=== PATIENT | male | born 1950 | race Caucasian/White ===

== ENCOUNTER 2023-11-02 16:23 | Inpatient (IN) | payer OTHER ==
--- NOTE | 2023-11-02 18:12 | XRAY Report ---
PROCEDURE: Femur 2+V RT INDICATIONS: Trauma TECHNIQUE: 4 views of the femur were acquired. COMPARISON: None. FINDINGS: Exam is degraded by nonstandard patient positioning Bones: Questionable fracture through the greater trochanter poorly visualized. Soft tissues: No suspicious soft tissue calcifications or masses. IMPRESSION: Probable intertrochanteric fracture. Recommend CT Reviewed by: Isra Sahu MD on 11/02/2023 5:11 PM [facility] Approved by: Isra Sahu MD on 11/02/2023 5:11 PM [facility] Station ID: [id number]
[2023-11-02] MEDS ORDERED: oxyCODONE 5 MG TABLET PO STA ×2 (18:28→19:34)
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
[2023-11-02] MEDS ORDERED: SODIUM CHLORIDE 0.9% 1,000 ML IV STA (20:21)
--- NOTE | 2023-11-02 20:28 | CT Report ---
PROCEDURE: Lower Extremity RT WO INDICATIONS: fall, R hip/groin pain, poss fx on xray TECHNIQUE: Noncontrast 3-mm axial sections acquired from the distal tibial shaft to the talar dome, with coronal and sagittal reformats. For radiation dose reduction, the following was used: automated exposure c ontrol, adjustment of mA and/or kV according to patient size. COMPARISON: Right hip and femur radiographs earlier today. FINDINGS: Image quality: Excellent. Bones: Right hip intertrochanteric fracture. No dislocation of the hip joint. No additional fracture . No suspicious osseous lesion. Soft tissues: No large hematoma. Small contusion at in the subcutaneous soft tissues near the fractu re site. No suspicious calcifications. No free fluid in the pelvis. Prostatomegaly. Impression: Right hip intertrochanteric fracture. Reviewed by: Burke Bowie MD on 11/02/2023 8:27 PM PST Approved by: Burke Bowie MD on 11/02/2023 8:27 PM PST Station ID: [id number]
[2023-11-02 20:32] LABS: BASOPHILS # (AUTO) 0.1 10^3/uL (0.0-0.1); BASOPHILS % (AUTO) 0.4 %; EOSINOPHILS % (AUTO) 0.1 %; HCT - HEMATOCRIT 42.5 % (42.0-52.0); HGB - HEMOGLOBIN 13.7 g/dL (14.0-18.0); LYMPHOCYTES # (AUTO) 0.9 10^3/uL (1.5-3.5); LYMPHOCYTES % (AUTO) 5.1 %; MEAN CORPUSCULAR HEMOGLOBIN 28.5 pg (27.0-31.0); MEAN CORPUSCULAR HGB CONC 32.2 g/dL (32.0-36.0); MEAN CORPUSCULAR VOLUME 88.4 fL (80.0-94.0); MEAN PLATELET VOLUME 10.3 fL (7.4-11.4); MONOCYTES # (AUTO) 0.9 10^3/uL (0.0-1.0); NEUTROPHILS # (AUTO) 15.2 10^3/uL (1.5-6.6); PLT - PLATELET COUNT 294 10^3/uL (130-450); RED BLOOD COUNT 4.81 10^6/uL (4.70-6.10); RED CELL DISTRIBUTION WIDTH 12.7 % (12.0-15.0)
[2023-11-02 20:49] LABS: ALBUMIN 3.7 g/dL (3.2-5.5); ALBUMIN/GLOBULIN RATIO 1.2 (1.0-2.2); BILIRUBIN,TOTAL 0.4 mg/dL (0.2-1.0); CALCIUM 9.3 mg/dL (8.5-10.3); CREATININE 0.7 mg/dL (0.6-1.3); POTASSIUM 4.1 mmol/L (3.5-4.5); TOTAL PROTEIN 6.8 g/dL (6.4-8.9)
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
[2023-11-02] MEDS ORDERED: oxyCODONE 5 MG TABLET PO PRN (21:46)
[2023-11-02] MEDS ORDERED: ONDANSETRON ODT 4 MG TABLET TL PRN (21:46)
[2023-11-02] MEDS ORDERED: ONDANSETRON 4 MG/2 ML VIAL IVP PRN (21:46)
[2023-11-02] MEDS ORDERED: SODIUM CHLORIDE FLUSH 0.9% 10 ML SYRINGE IVP PRN (21:46)
[2023-11-02] MEDS ORDERED: IPRATROPIUM/ALBUTEROL 3 ML NEB INH PRN (21:49)
[2023-11-02] MEDS ORDERED: LACTATED RINGERS 1,000 ML IV SCH (22:00)
--- NOTE | 2023-11-03 00:02 | XRAY Report ---
PROCEDURE: Chest 1V INDICATIONS: Preop TECHNIQUE: One view of the chest was acquired. COMPARISON: CT right lower extremity also performed today. FINDINGS: Surgical changes and devices: None. Lungs and pleura: No pleural effusions or pneumothorax. Lungs are clear. Mediastinum: Mediastinal contours appear normal. Heart size is normal. Bones and chest wall: No suspicious bony lesions. Overlying soft tissues appear unremarkable. IMPRESSION: No acute cardiopulmonary process. Reviewed by: Burke Bowie MD on 11/03/2023 12:01 AM [facility] Approved by: Burke Bowie MD on 11/03/2023 12:01 AM [facility] Station ID: [id number]
[2023-11-03] MEDS: MORPHINE 2 MG/ML CARPUJECT IVP PRN ×3 (00:28→08:23)
[2023-11-03] MEDS: SODIUM CHLORIDE FLUSH 0.9% 10 ML SYRINGE IVP SCH ×3 (00:36→17:40)
[2023-11-03] MEDS: ACETAMINOPHEN 325 MG TABLET PO PRN ×3 (00:50→08:22)
[2023-11-03 06:14] LABS: BASOPHILS % (AUTO) 0.3 %; EOSINOPHILS % (AUTO) 0.1 %; HCT - HEMATOCRIT 36.7 % (42.0-52.0); HGB - HEMOGLOBIN 11.9 g/dL (14.0-18.0); LYMPHOCYTES # (AUTO) 1.5 10^3/uL (1.5-3.5); LYMPHOCYTES % (AUTO) 10.9 %; MEAN CORPUSCULAR HEMOGLOBIN 28.5 pg (27.0-31.0); MEAN CORPUSCULAR HGB CONC 32.4 g/dL (32.0-36.0); MEAN PLATELET VOLUME 10.8 fL (7.4-11.4); MONOCYTES # (AUTO) 1.1 10^3/uL (0.0-1.0); MONOCYTES % (AUTO) 7.8 %; NEUTROPHILS # (AUTO) 11.5 10^3/uL (1.5-6.6); NEUTROPHILS % (AUTO) 80.6 %; PLT - PLATELET COUNT 254 10^3/uL (130-450); RED BLOOD COUNT 4.17 10^6/uL (4.70-6.10); RED CELL DISTRIBUTION WIDTH 12.8 % (12.0-15.0); WHITE BLOOD COUNT 14.2 x10^3/uL (4.8-10.8)
[2023-11-03 06:29] LABS: CALCIUM 8.3 mg/dL (8.5-10.3); CREATININE 0.6 mg/dL (0.6-1.3); POTASSIUM 4.2 mmol/L (3.5-4.5)
--- NOTE | 2023-11-03 10:38 | PROVIDER PROGRESS NOTE ---
Assessment/Plan - Problem List (1) Intertrochanteric fracture of right hip Qualifiers: Fracture type: closed Fracture alignment: nondisplaced Qualified Code(s): S72.144A - Nondisplaced intertrochanteric fracture of right femur, initial encounter for closed fracture Assessment/Plan: Plan: Treat with pain meds To OR with Ortho today Post-op he will need PT and OT (2) Leukocytosis WBC 17 in ER and is 14.2 today without starting any antibx. His CXR was WNL. His U/A is also normal. This is most likely reactive s/p trauma; no current s/s infection Plan: Will monitor CBC (3) Asthma RT learned from the pt that he does not respond well to Albuterol and Xopenex and is on Alvesco MDI at home Plan: Will cancel Duonebs ordered by Telemedicine Will order Alvesco, as pt's own med on his reconciled med list (4) Abnormal EKG His pre-op EKG was ordered by Telemedicine but not interpreted lkast night. I interpreted the EKG, it shows: NSR, incomplete RBBB, RA enlgm, LAFB. These changes suggest Cor Pulmonale. No prior EKG available for comparison. I discussed these EKG findings with anesthesia provider who will be taking hi to OR, Yeimy Padilla (5) Hyperglycemia Glc 139, was a non-fasting result, then was 115 fasting this a.m. Plan: Checking Hgba1c - Current Meds Current Meds: Current Medications Generic Name Dose Route Start Last Admin Trade Name Freq PRN Reason Stop Dose Admin Acetaminophen 650 mg 11/02/23 21:46 11/03/23 08:22 Acetaminophen 325 Mg Tablet PO 650 mg Q4HR PRN Administration Pain 1 to 4, or Fever Lactated Ringer's 1,000 mls @ 75 mls/hr 11/02/23 22:00 11/03/23 01:45 Lr IV 75 mls/hr .[id number] SERGE Administration Morphine Sulfate 2 mg 11/02/23 21:46 11/03/23 08:23 Morphine 2 Mg/Ml Carpuject IVP 2 mg Q4HR PRN Administration Pain 8 to 10 Sodium Chloride 10 ml 11/03/23 01:00 11/03/23 08:27 Sodium Chloride Flush 0.9% 10 Ml Syringe IVP 10 ml [id number],[id number],1700 [facility] Administration - Lab Result Fish Bone Diagrams: 11/03/23 05:33 11/03/23 05:33 - EKG Results EKG Interpreted Independently: Yes EKG Comparison: Old EKG unavailable EKG Findings: NSR, incomplete RBBB, RA enlgm, LAFB. These changes suggest Cor Pulmonale. No prior EKG available for comparison. - Diagnostic Imaging Results Diagnostic Imaging Results: Final report reviewed Subjective - Subjective Patient Reports: Resting Comfortably Objective Vital Signs: Vital Signs - 24 hr 11/02/23 11/02/23 11/02/23 16:27 18:34 20:00 Temperature 36.8 C 36.2 C L 36.5 C Heart Rate 88 94 96 Heart Rate [ Brachial] Respiratory 20 16 16 Rate Blood Pressure 121/79 125/70 122/70 Blood Pressure [Right Brachial artery] O2 Saturation 98 96 98 11/02/23 11/03/23 22:45 08:01 Temperature 37.3 C 36.4 C L Heart Rate Heart Rate [ 94 57 L Brachial] Respiratory 20 18 Rate Blood Pressure Blood Pressure 118/76 99/56 L [Right Brachial artery] O2 Saturation 95 91 L Oxygen O2 Source Room air I&O (Last 24 Hrs): Intake and Output Totals x24h 11/01/23 11/02/23 11/03/23 23:59 23:59 23:59 Intake Total 0 1000 Output Total 600 Balance 0 400 General: Alert, Other (Thin frail male (BMI 17)) HEENT: Mucous membr. moist/pink Neck: Supple Neuro: Alert, Non Focal Cardiovascular: Regular rate Respiratory: No respiratory distress Abdomen: Soft Extremities: No edema - Results Results: Laboratory Results WBC 14.2 x10^3/uL (4.8-10.8) H 11/03/23 05:33 RBC 4.17 10^6/uL (4.70-6.10) L 11/03/23 05:33 Hgb 11.9 g/dL (14.0-18.0) L 11/03/23 05:33 Hct 36.7 % (42.0-52.0) L 11/03/23 05:33 MCV 88.0 fL (80.0-94.0) 11/03/23 05:33 MCH 28.5 pg (27.0-31.0) 11/03/23 05:33 MCHC 32.4 g/dL (32.0-36.0) 11/03/23 05:33 RDW 12.8 % (12.0-15.0) 11/03/23 05:33 Plt Count 254 10^3/uL (130-450) 11/03/23 05:33 MPV 10.8 fL (7.4-11.4) 11/03/23 05:33 Neut # (Auto) 11.5 10^3/uL (1.5-6.6) H 11/03/23 05:33 Lymph # (Auto) 1.5 10^3/uL (1.5-3.5) 11/03/23 05:33 [place] # (Auto) 1.1 10^3/uL (0.0-1.0) H 11/03/23 05:33 Eos # (Auto) 0.0 10^3/uL (0.0-0.7) 11/03/23 05:33 Baso # (Auto) 0.0 10^3/uL (0.0-0.1) 11/03/23 05:33 Absolute Nucleated RBC 0.00 x10^3/uL 11/03/23 05:33 Nucleated RBC % 0.0 /100WBC 11/03/23 05:33 Sodium 137 mmol/L (135-145) 11/03/23 05:33 Potassium 4.2 mmol/L (3.5-4.5) 11/03/23 05:33 Chloride 106 mmol/L (101-111) 11/03/23 05:33 Carbon Dioxide 27 mmol/L (21-32) 11/03/23 05:33 Anion Gap 4.0 (6-13) L 11/03/23 05:33 BUN 18 mg/dL (6-20) 11/03/23 05:33 Creatinine 0.6 mg/dL (0.6-1.3) 11/03/23 05:33 Estimated GFR (MDRD) 132 (>89) 11/03/23 05:33 Glucose 115 mg/dL (74-104) H 11/03/23 05:33 Calcium 8.3 mg/dL (8.5-10.3) L 11/03/23 05:33 Total Bilirubin 0.4 mg/dL (0.2-1.0) 11/02/23 20: AST 18 IU/L (10-42) 11/02/23 20: ALT 14 IU/L (10-60) 11/02/23 20: Alkaline Phosphatase 72 IU/L (42-121) 11/02/23 20: Total Protein 6.8 g/dL (6.4-8.9) 11/02/23: Albumin 3.7 g/dL (3.2-5.5) 11/02/23: Globulin 3.1 g/dL (2.1-4.2) 11/02/23: Albumin/Globulin Ratio 1.2 (1.0-2.2) 11/02/23:
[2023-11-03] MEDS ORDERED: BUPIVACAINE 0.25% PF 30 ML VIAL ONE (13:01)
[2023-11-03] MEDS ORDERED: fentaNYL 100 MCG/2 ML VIAL ONE (13:12)
[2023-11-03] MEDS ORDERED: PROPOFOL 200 MG/20 ML VIAL IVP ONE (13:12)
[2023-11-03] MEDS ORDERED: MIDAZOLAM 2 MG/2 ML VIAL ONE (13:16)
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
[2023-11-03 14:07] LABS: ESTIMATED AVERAGE GLUCOSE 120 mg/dL (70-100); HEMOGLOBIN A1c% 5.8 % (4.27-6.07)
[2023-11-03] MEDS ORDERED: ceFAZolin 1 GM VIAL ONE (14:15)
[2023-11-03] MEDS ORDERED: TRANEXAMIC ACID 1,000 MG/10 ML VIAL ONE (14:15)
[2023-11-03] MEDS ORDERED: PHENYLEPHRINE HCL 0.5 MG/5 ML AMPULE ONE ×2 (14:15→14:31)
[2023-11-03] MEDS ORDERED: ROPIVACAINE 0.2% PF 10 ML VIAL ONE (14:50)
[2023-11-03] MEDS ORDERED: DEXAMETHASONE 4 MG/ML VIAL ONE (14:51)
[2023-11-03] MEDS ORDERED: HYDROmorphone 1 MG/ML CARPUJECT ONE (14:52)
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
[2023-11-03] MEDS ORDERED: oxyCODONE 5 MG TABLET PO PRN (15:47)
[2023-11-03] MEDS ORDERED: DOCUSATE SODIUM 100 MG CAPSULE PO PRN (15:47)
[2023-11-03] MEDS ORDERED: fentaNYL 250 MCG/5 ML VIAL IVP PRN (15:47)
[2023-11-03] MEDS ORDERED: LACTATED RINGERS 1,000 ML IV ONE (16:06)
[2023-11-03] MEDS ORDERED: NALOXONE 0.4 MG/ML VIAL IVP PRN (16:20)
[2023-11-03] MEDS ORDERED: ATROPINE ABBOJECT 1 MG/10 ML SYRINGE IVP PRN (16:20)
[2023-11-03] MEDS ORDERED: HYDROmorphone 0.5 MG/0.5 ML SYRINGE IVP PRN (16:20)
[2023-11-03] MEDS ORDERED: MORPHINE 2 MG/ML CARPUJECT IVP PRN (16:20)
[2023-11-03] MEDS ORDERED: ONDANSETRON 4 MG/2 ML VIAL IVP PRN (16:20)
[2023-11-03] MEDS ORDERED: fentaNYL 100 MCG/2 ML VIAL IVP PRN (16:20)
--- NOTE | 2023-11-03 16:42 | ANESTHESIA POST OP EVALUATION ---
Anesthesia Post Eval - Post Anesthesia Eval Vitals: Last Vital Signs Temp 36.5 C 11/03/23 16:40 Pulse 85 11/03/23 16:40 Resp 12 11/03/23 16:40 BP 104/67 11/03/23 16:40 Pulse Ox 100 11/03/23 16:40 O2 Flow Rate CV Function Including HR & BP: Stable Pain Control: Satisfactory Nausea & Vomiting: Negative Mental Status: Baseline Respiratory Status: Airway Patent Hydration Status: Satisfactory Anesthesia Complications: None
[2023-11-03] MEDS ORDERED: LACTATED RINGERS 1,000 ML IV SCH (17:00)
[2023-11-03] MEDS: NS W/20 MEQ KCL 1,000 ML IV SCH (17:37)
[2023-11-03] MEDS ORDERED: BUDESONIDE 0.5 MG/2 ML NEB INH SCH (19:00)
[2023-11-03 19:18] LABS: BILIRUBIN,URINE NEGATIVE (NEGATIVE); GLUCOSE, URINE (UA) NEGATIVE (NEGATIVE); KETONES,URINE (UA) TRACE mg/dL (NEGATIVE); LEUKOCYTE ESTERASE, URINE NEGATIVE (NEGATIVE); NITRITE,URINE NEGATIVE (NEGATIVE); OCCULT BLOOD,URINE NEGATIVE (NEGATIVE); PH,URINE 5.5 PH (5.0-7.5); PROTEIN,URINE NEGATIVE (NEGATIVE); UROBILINOGEN,URINE 0.2 (NORMAL) E.U./dL (NORMAL)
[2023-11-03 19:30] LABS: CLARITY,URINE CLEAR (CLEAR); RBC,URINE None Seen /HPF (0-5); WBC,URINE 0-3 /HPF (0-3)
[2023-11-03 19:31] LABS: BACTERIA,URINE Rare /HPF (None Seen); MUCUS,URINE Moderate Strands; SQUAMOUS EPITHELIAL CELL,UR RARE Squamous (<= Few)
[2023-11-03] MEDS: ASPIRIN EC 81 MG TABLET PO SCH (20:31)
[2023-11-03] MEDS: ceFAZolin (2G) 2 GM in SODIUM CHLORIDE 0.9% MINIBAG 100 ML IV SCH (21:31)
[2023-11-03] MEDS: ALVESCO INH SCH (21:35)
[2023-11-03] MEDS: CELECOXIB 100 MG CAPSULE PO SCH (21:35)
[2023-11-03] MEDS: ACETAMINOPHEN 500 MG TABLET PO SCH (21:59)
[2023-11-03] MEDS ORDERED: ACETAMINOPHEN 325 MG TABLET PO SCH (22:00)
[2023-11-04] MEDS: SODIUM CHLORIDE FLUSH 0.9% 10 ML SYRINGE IVP SCH ×2 (00:57→09:29)
[2023-11-04] MEDS: ceFAZolin (2G) 2 GM in SODIUM CHLORIDE 0.9% MINIBAG 100 ML IV SCH (03:48)
[2023-11-04] MEDS: NS W/20 MEQ KCL 1,000 ML IV SCH (03:55)
[2023-11-04 06:04] LABS: BASOPHILS % (AUTO) 0.1 %; HCT - HEMATOCRIT 33.2 % (42.0-52.0); HGB - HEMOGLOBIN 10.8 g/dL (14.0-18.0); LYMPHOCYTES # (AUTO) 1.1 10^3/uL (1.5-3.5); LYMPHOCYTES % (AUTO) 8.1 %; MEAN CORPUSCULAR HEMOGLOBIN 28.6 pg (27.0-31.0); MEAN CORPUSCULAR HGB CONC 32.5 g/dL (32.0-36.0); MEAN CORPUSCULAR VOLUME 88.1 fL (80.0-94.0); MEAN PLATELET VOLUME 11.1 fL (7.4-11.4); MONOCYTES # (AUTO) 1.4 10^3/uL (0.0-1.0); MONOCYTES % (AUTO) 10.2 %; NEUTROPHILS % (AUTO) 81.3 %; PLT - PLATELET COUNT 213 10^3/uL (130-450); RED BLOOD COUNT 3.77 10^6/uL (4.70-6.10); RED CELL DISTRIBUTION WIDTH 12.9 % (12.0-15.0); WHITE BLOOD COUNT 13.5 x10^3/uL (4.8-10.8)
[2023-11-04 06:28] LABS: CREATININE 0.6 mg/dL (0.6-1.3); POTASSIUM 4.3 mmol/L (3.5-4.5)
[2023-11-04] MEDS: ACETAMINOPHEN 500 MG TABLET PO SCH ×2 (06:54→14:47)
[2023-11-04] MEDS: ASPIRIN EC 81 MG TABLET PO SCH (08:07)
[2023-11-04] MEDS: CELECOXIB 100 MG CAPSULE PO SCH ×2 (08:07→08:11)
[2023-11-04] MEDS: ALVESCO INH SCH (09:29)
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
--- NOTE | 2023-11-04 11:37 | XRAY Report ---
PROCEDURE: OR C-Arm Procedure INDICATIONS: RIGHT HIP NAILING FLUORO TIME: 0:27 TECHNIQUE: Four fluoroscopic intraoperative views of the right femur were obtained. COMPARISON: CT lower extremity 11/02/23 FINDINGS: Intraoperative image demonstrating right femoral fixation. Hardware is intact. There is good anatomic alignment. Fracture lucencies persist IMPRESSION: Intraoperative right femoral fixation. Reviewed by: Radha Hui MD on 11/04/2023 11:35 AM PST Approved by: Radha Hui MD on 11/04/2023 11:35 AM PST Station ID: [id number]
--- NOTE | 2023-11-04 13:03 | PROVIDER PROGRESS NOTE ---
Subjective - General Admit Date: 11/02/23 Procedure Date: 11/03/23 Post Op Days: 1 Procedure Performed: ORIF right hip with intramedullary nail and hip screws - Review of Systems All Other Systems: positive: Reviewed and negative - Other Other Information/Narrative: Alert, sitting upright in a chair, eating lunch He reports pain is well-controlled He works with physical therapy this morning and was reportedly walking well with front wheeled walker. He refused Tylenol, Celebrex and his antibiotics overnight. He states that nausea is the reason to refuse his medications. Objective - Patient Data Reviewed Vital Signs: Yes Vital Signs: Vital Signs x48h Temp Pulse Resp BP Pulse Ox 11/04/23 10:35 37.4 C 86 18 104/55 L 93 11/04/23 07:30 36.8 C 77 16 101/54 L 93 Weight: Weight 11/02/23 11/03/23 11/04/23 23:59 23:59 23:59 Weight (kg) 53.5 kg Intake & Output: Intake and Output Totals x24h 11/02/23 11/03/23 11/04/23 23:59 23:59 23:59 Intake Total 0 2470 1340 Output Total 1150 1200 Balance 0 1320 140 - Lab Results Lab Results: 11/04/23 05:37 11/04/23 05:37 Other Lab Results: Lab Results x24hrs 11/04/23 11/04/23 11/03/23 Range/Units 05:37 05:37 19:05 WBC 13.5 H (4.8-10.8) x10^3/uL RBC 3.77 L (4.70-6.10) 10^6/uL Hgb 10.8 L (14.0-18.0) g/dL Hct 33.2 L (42.0-52.0) % MCV 88.1 (80.0-94.0) fL MCH 28.6 (27.0-31.0) pg MCHC 32.5 (32.0-36.0) g/dL RDW 12.9 (12.0-15.0) % Plt Count 213 (130-450) 10^3/uL MPV 11.1 (7.4-11.4) fL Neut # (Auto) 11.0 H (1.5-6.6) 10^3/uL Lymph # (Auto) 1.1 L (1.5-3.5) 10^3/uL [place] # (Auto) 1.4 H (0.0-1.0) 10^3/uL Eos # (Auto) 0.0 (0.0-0.7) 10^3/uL Baso # (Auto) 0.0 (0.0-0.1) 10^3/uL Absolute Nucleated RBC 0.00 x10^3/uL Nucleated RBC % 0.0 /100WBC Sodium 136 (135-145) mmol/L Potassium 4.3 (3.5-4.5) mmol/L Chloride 108 (101-111) mmol/L Carbon Dioxide 28 (21-32) mmol/L Anion Gap 0.0 L (6-13) BUN 13 (6-20) mg/dL Creatinine 0.6 (0.6-1.3) mg/dL Estimated GFR (MDRD) 132 (>89) Glucose 121 H (74-104) mg/dL Estimat Average Glucose (70-100) mg/dL Hemoglobin A1c % (4.27-6.07) % Calcium 8.0 L (8.5-10.3) mg/dL Urine Color YELLOW Urine Clarity CLEAR (CLEAR) Urine pH 5.5 (5.0-7.5) PH Ur Specific [place] >=1.030 H (1.002-1.030) Urine Protein NEGATIVE (NEGATIVE) mg/dL Urine Glucose (UA) NEGATIVE (NEGATIVE) mg/dL Urine Ketones TRACE (NEGATIVE) mg/dL Urine Occult Blood NEGATIVE (NEGATIVE) Urine Nitrite NEGATIVE (NEGATIVE) Urine Bilirubin NEGATIVE (NEGATIVE) Urine Urobilinogen 0.2 (NORMAL) (NORMAL) E.U./dL Ur Leukocyte Esterase NEGATIVE (NEGATIVE) Urine RBC None Seen (0-5) /HPF Urine WBC 0-3 (0-3) /HPF Ur Squamous Epith Cells RARE Squamous (<= Few) Urine Bacteria Rare (None Seen) /HPF Urine Mucus Moderate Strands Urine Culture Comments NOT INDICATED 11/03/23 Range/Units 05:33 WBC (4.8-10.8) x10^3/uL RBC (4.70-6.10) 10^6/uL Hgb (14.0-18.0) g/dL Hct (42.0-52.0) % MCV (80.0-94.0) fL MCH (27.0-31.0) pg MCHC (32.0-36.0) g/dL RDW (12.0-15.0) % Plt Count (130-450) 10^3/uL MPV (7.4-11.4) fL Neut # (Auto) (1.5-6.6) 10^3/uL Lymph # (Auto) (1.5-3.5) 10^3/uL [place] # (Auto) (0.0-1.0) 10^3/uL Eos # (Auto) (0.0-0.7) 10^3/uL Baso # (Auto) (0.0-0.1) 10^3/uL Absolute Nucleated RBC x10^3/uL Nucleated RBC % /100WBC Sodium (135-145) mmol/L Potassium (3.5-4.5) mmol/L Chloride (101-111) mmol/L Carbon Dioxide (21-32) mmol/L Anion Gap (6-13) BUN (6-20) mg/dL Creatinine (0.6-1.3) mg/dL Estimated GFR (MDRD) (>89) Glucose (74-104) mg/dL Estimat Average Glucose 120 H (70-100) mg/dL Hemoglobin A1c % 5.8 (4.27-6.07) % Calcium (8.5-10.3) mg/dL Urine Color Urine Clarity (CLEAR) Urine pH (5.0-7.5) PH Ur Specific [place] (1.002-1.030) Urine Protein (NEGATIVE) mg/dL Urine Glucose (UA) (NEGATIVE) mg/dL Urine Ketones (NEGATIVE) mg/dL Urine Occult Blood (NEGATIVE) Urine Nitrite (NEGATIVE) Urine Bilirubin (NEGATIVE) Urine Urobilinogen (NORMAL) E.U./dL Ur Leukocyte Esterase (NEGATIVE) Urine RBC (0-5) /HPF Urine WBC (0-3) /HPF Ur Squamous Epith Cells (<= Few) Urine Bacteria (None Seen) /HPF Urine Mucus Urine Culture Comments - Current Medications Current Medications: Current Medications Generic Name Dose Route Start Last Admin Trade Name Freq PRN Reason Stop Dose Admin Acetaminophen 1,000 mg 11/03/23 22:00 11/04/23 06:54 Acetaminophen 500 Mg Tablet PO Not Given TID [facility] Aspirin 81 mg 11/03/23 21:00 11/04/23 08:07 Aspirin Ec 81 Mg Tablet PO 81 mg BID SERGE Administration Celecoxib 200 mg 11/03/23 21:00 11/04/23 08:11 Celecoxib 100 Mg Capsule PO Not Given BID SERGE Potassium Chloride/Sodium Chloride 1,000 mls @ 100 mls/hr 11/03/23 16:00 11/04/23 03:55 Normal Saline 0.9% W/20 Meq Kcl IV 100 mls/hr .Q10H SERGE Administration Patient Own Med ( 1 each 11/03/23 21:00 11/04/23 09:29 Alves[place]) INH 1 each BID SERGE Administration Sodium Chloride 10 ml 11/03/23 01:00 11/04/23 09:29 Sodium Chloride Flush 0.9% 10 Ml Syringe IVP 10 ml 0100,0900,1700 SERGE Administration - Physical Exam Comments/Other: well-developed, well-nourished, 73-year-old male, no acute distress, pleasant and alert, oriented x [address] to right hip. Dressings are dry and intact without drainage or hematoma. Neurovascular intact to femoral and sciatic nerve distributions of the right lower extremity. ABX Reporting Has patient been on IV antibiotics over the past 48 hours?: Yes Impression/Plan - Problem List Problem List: 73-year-old male who is postoperative day 1 from open reduction internal fixation right hip with intramedullary nail and screws for intertrochanteric femur fracture on 11/03/23. He is recovering well and is tolerating oral diet. He is working with physical therapy and was reportedly ambulating well on with front wheel walker. He hopes to return home. Plan: - DVT prophylaxis with 81 mg of aspirin twice daily for 6 weeks - Physical and occupational therapy evaluation today and assessment. PT documentation from 11/04/23 recommends discharge home. - Pain control with scheduled tylenol, celebrex and oxycodone and IV fentanyl as needed. I encouraged patient to use oral pain medications rather than IV. - Weight bearing as tolerated with front wheeled walker at all times - Follow up with orthopedic clinic within 1 week - Mepilex dressings to remain in place until follow up - Bowel regimen if needed - Normal diet, IV fluids to be discontinued when tolerating oral diet without nausea and emesis
[2023-11-04 16:45] VITALS: BP 111/64; O2SAT 94
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
--- NOTE | 2023-11-11 11:20 | ANESTHESIA ---
Pre-Anesthesia VS, & Labs - Diagnosis Right intertrochanteric femur fracture - Procedure right ORIF intertrochanteric femur fracture Vital Signs: Temp Pulse Resp BP Pulse Ox O2 Flow Rate 37.2 C 104 H 20 103/59 L 96 1 11/04/23 15:35 11/04/23 15:35 11/04/23 15:35 11/04/23 15:35 11/04/23 15:35 11/04/23 03:56 Height: 5 ft 9 in Weight (kg): 53.5 kg Body Mass Index: 17.4 BMI Classification: Underweight - NPO >8 hours - Lab Results Current Lab Results: Laboratory Tests 11/04/23 05:37: Sodium 136, Potassium 4.3, Chloride 108, Carbon Dioxide 28, Anion Gap 0.0 L, BUN 13, Creatinine 0.6, Estimated GFR (MDRD) 132, Glucose 121 H , Calcium 8.0 L 11/04/23 05:37: WBC 13.5 H, RBC 3.77 L, Hgb 10.8 L, Hct 33.2 L, MCV 88.1, MCH 28.6, MCHC 32.5, RDW 12.9, Plt Count 213, MPV 11.1, Neut # (Auto) 11.0 H, Lymph # (Auto) 1.1 L, [place] # (Auto) 1.4 H, Eos # (Auto) 0.0, Baso # (Auto) 0.0, Absolute Nucleated RBC 0.00, Nucleated RBC % 0.0 11/03/23 05:33: Estimat Average Glucose 120 H, Hemoglobin A1c % 5.8 11/03/23 05:33: Sodium 137, Potassium 4.2, Chloride 106, Carbon Dioxide 27, Anion Gap 4.0 L, BUN 18, Creatinine 0.6, Estimated GFR (MDRD) 132, Glucose 115 H , Calcium 8.3 L 11/03/23 05:33: WBC 14.2 H, RBC 4.17 L, Hgb 11.9 L, Hct 36.7 L, MCV 88.0, MCH 28.5, MCHC 32.4, RDW 12.8, Plt Count 254, MPV 10.8, Neut # (Auto) 11.5 H, Lymph # (Auto) 1.5, [place] # (Auto) 1.1 H, Eos # (Auto) 0.0, Baso # (Auto) 0.0, Absolute Nucleated RBC 0.00, Nucleated RBC % 0.0 11/02/23 20:26: Sodium 136, Potassium 4.1, Chloride 101, Carbon Dioxide 29, Anion Gap 6.0, BUN 21 H, Creatinine 0.7, Estimated GFR (MDRD) 111, Glucose 139 H , Calcium 9.3, Total Bilirubin 0.4, AST 18, ALT 14, Alkaline Phosphatase 72, Total Protein 6.8, Albumin 3.7, Globulin 3.1, Albumin/Globulin Ratio 1.2 11/02/23 20:26: WBC 17.0 H, RBC 4.81, Hgb 13.7 L, Hct 42.5, MCV 88.4, MCH 28.5, MCHC 32.2, RDW 12.7, Plt Count 294, MPV 10.3, Neut # (Auto) 15.2 H, Lymph # (Auto) 0.9 L, [place] # (Auto) 0.9, Eos # (Auto) 0.0, Baso # (Auto) 0.1, Absolute Nucleated RBC 0.00, Nucleated RBC % 0.0 Lab results reviewed: Yes Fish Bones: 11/04/23 05:37 11/04/23 05:37 Home Medications and Allergies Home Medications: Ambulatory Orders Ciclesonide [Alvesco] 6.1 gm IH BID 11/02/23 Ciclesonide [Alvesco] 6.1 gm IH BID 11/02/23 Allergies/Adverse Reactions: Allergies Allergy/AdvReac Type Severity Reaction Status Date / Time Penicillins Allergy Unknown Unknown Verified 11/03/23 21:35 Anes History & Medical History - Anesthetic History Anesthesia Complications: reports: No previous complications - Medical History Cardiovascular: reports: None Pulmonary: reports: Asthma, COPD Gastrointestinal: reports: None Urinary: reports: None Neuro: reports: None Musculoskeletal: reports: Other (Recent weight loss) Endocrine/Autoimmune: reports: None Blood Disorders: reports: None Skin: reports: None Smoking Status: Never smoker Psychosocial: reports: No issues indicated History of Cancer?: No Other Past Medical History: COPD, asthma - Surgical History General: reports: Hiatal hernia repair Exam General: Alert, Oriented x3, Cooperative, No acute distress Dental: WNL Mouth Openin Fingerbreadth Neck Mobility: Normal Mallampati classification: II Thyromental Distance: 4-6 cm Mental/Cognitive Status: Alert/Oriented X3, Normal for patient Cognitive Status: Within normal limits Plan Anesthesia Type: General, Fascia [place]liaca Block (right) Regional Block: Per Surgeon's request for Post Op pain control Consent for Procedure(s) Verified and Reviewed: Yes Code Status: Attempt Resuscitation ASA classification: 2-Mild systemic disease Is this case an emergency?: No
== END 2023-11-04 17:47 | disposition home health service (06) | DRG 481 ==
LOC: ED 16:23 → MS2 21:46
PROVIDERS: ADMIT Internal Medicine; ATTEND Specialist
PROC: 0QS604Z Reposition Right Upper Femur with Internal Fixation Device, Open Approach (ICD-10-PCS; principal; 2023-11-03 13:30)
DX: S72.141A Displaced intertrochanteric fracture of right femur, initial encounter for closed fracture (principal); D62 Acute posthemorrhagic anemia; I45.2 Bifascicular block; Z68.1 Body mass index [BMI] 19.9 or less, adult; V28.41XA Electric (assisted) bicycle driver injured in noncollision transport accident in traffic accident, initial encounter; Y93.55 Activity, bike riding; D72.829 Elevated white blood cell count, unspecified; J42 Unspecified chronic bronchitis; J45.909 Unspecified asthma, uncomplicated; R73.9 Hyperglycemia, unspecified; E83.51 Hypocalcemia; R11.0 Nausea; R63.6 Underweight
CPT/HCPCS: 36415; 71045; 73552; 73700; 80048; 80053; 81001; 83036; 85025; 93005; 97161; 97166; 97530; 99284; 99285; A9270; C1713; J1170; J2372; J7120; 87086

== ENCOUNTER 2023-11-27 08:00 | Outpatient (CLI) | payer OTHER ==
--- NOTE | 2023-11-27 15:45 | XRAY Report ---
PROCEDURE: Hip 2 View RT INDICATIONS: RIGHT HIP ORIF TECHNIQUE: 2 view(s) of the hip were acquired. COMPARISON: 11/02/2022 FINDINGS: Bones: Interval right hip ORIF, with near-anatomic alignment. No hardware complication. Soft tissues: No suspicious soft tissue calcifications or masses. IMPRESSION: Interval right hip ORIF, without hardware complication. Reviewed by: Jere Quiroz MD on 11/27/2023 3:44 PM PST Approved by: Jere Quiroz MD on 11/27/2023 3:44 PM PST Station ID: [id number]
== END 2023-11-27 23:59 | disposition home or self-care (01) ==
LOC: DI.WOS 08:00
PROVIDERS: ATTEND Orthopaedic Surgery
DX: Z09 Encounter for follow-up examination after completed treatment for conditions other than malignant neoplasm (principal); M25.551 Pain in right hip; Z96.641 Presence of right artificial hip joint

== ENCOUNTER 2024-01-26 10:45 | Outpatient (CLI) | payer OTHER ==
--- NOTE | 2024-01-26 14:19 | XRAY Report ---
PROCEDURE: Hip 2 View RT INDICATIONS: RIGHT HIP ORIF TECHNIQUE: 2 views of the hip were acquired. COMPARISON: Right hip radiographs 11/27/[address] 11/02/2023. FINDINGS: Bones: Postsurgical changes are again seen from internal fixation of the previously seen intertrocha nteric fracture of the right proximal femur with a gamma nail type device. Hardware appears intact. P ostsurgical alignment is unchanged. No new osseous abnormality identified. Soft tissues: No suspicious soft tissue calcifications. IMPRESSION: Stable postsurgical changes from right proximal femoral fracture fixation. Reviewed by: Vicente Jc MD on 01/26/2024 2:17 PM PDT Approved by: Vicente Jc MD on 01/26/2024 2:17 PM PDT Station ID: [id number]
== END 2024-01-26 23:59 | disposition home or self-care (01) ==
LOC: DI.WOS 10:45
PROVIDERS: ATTEND Orthopaedic Surgery
DX: S72.141D Displaced intertrochanteric fracture of right femur, subsequent encounter for closed fracture with routine healing (principal)